=== PATIENT | female | born 1930 | race Caucasian/White ===

== ENCOUNTER 2017-01-03 09:18 | Emergency (ER) | payer OTHER ==
[~2017-01-03] VITALS: Ht 170.2 cm; Wt 90.0 kg
[~2017-01-03 09:18] MED LIST: ALBU2.5V3 NEB; ALBU8.5H3 INH; AMLO2.5T78 PO; AZIT250T94 PO; GLIP2.5T3 PO; LAS20 PO; LEVO100T87 PO; LISI10TA2 PO; LORA10TA3 PO; OMEP40CA6 PO; ONDA4TAB35 PO; PRED20TA PO; [UNRECOGNIZED DRUG - CODE] MC
[2017-01-03 09:43] VITALS: Ht 170.2 cm; Wt 90.0 kg
[2017-01-03] MEDS ORDERED: morphine 4 MG/ML VIAL IV STA (09:50)
[2017-01-03] MEDS ORDERED: ONDANSETRON 4 MG INJ IV STA (09:50)
[2017-01-03] MEDS ORDERED: SOD CHLORIDE 0.9% 500 ML IV STA (09:50)
[2017-01-03 10:30] LABS: ADD SCAN DIFF NO
[2017-01-03] MEDS ORDERED: LINA5TAB PO (10:31)
[2017-01-03] MEDS ORDERED: LEVO25TA53 PO (10:31)
[2017-01-03] MEDS ORDERED: AMLO-147 PO (10:31)
[2017-01-03] MEDS ORDERED: NAPR-683 PO (10:32)
[2017-01-03] MEDS ORDERED: MELO-109 PO (10:32)
[2017-01-03 10:34] LABS: BASOPHILS % 1.1 % (0.0-2.0); EOSINOPHILS # 0.2 10^3/ul (0.0-0.5); EOSINOPHILS % 4.7 % (0.0-7.0); HEMATOCRIT 35.8 % (37.0-47.0); HEMOGLOBIN 12.4 g/dl (12.0-16.0); LYMPHOCYTES % 28.4 % (15.0-51.0); MEAN CORPUSCULAR HEMOGLOBIN 30.1 pg (29.0-33.0); MEAN CORPUSCULAR HGB CONC 34.6 g/dl (32.0-37.0); MEAN CORPUSCULAR VOLUME 86.9 fl (82.0-101.0); MEAN PLATELET VOLUME 9.8 fl (7.4-10.4); MONOCYTE # 0.2 10^3/ul (0.3-0.9); MONOCYTES % 6.3 % (0.0-11.0); NEUTROPHIL # 2.2 10^3/ul (1.6-7.5); NEUTROPHILS % 59.2 % (39.0-77.0); PLATELET COUNT 126 10^3/UL (140-415); RED BLOOD COUNT 4.12 10^6/ul (4.20-5.40); RED CELL DISTRIBUTION WIDTH 12.8 % (11.5-14.5); WHITE BLOOD COUNT 3.6 10^3/ul (4.8-10.8)
[2017-01-03] MEDS ORDERED: LISI20TA11 PO (10:34)
[2017-01-03 10:35] LABS: ADD UMIC YES; URINE BILIRUBIN (Dip) NEGATIVE (NEGATIVE); URINE BLOOD (Dip) NEGATIVE (NEGATIVE); URINE COLOR LT. YELLOW (YELLOW); URINE GLUCOSE (Dip) NEGATIVE (NEGATIVE); URINE KETONES (Dip) NEGATIVE (NEGATIVE); URINE LEUKOCYTE ESTERASE (Dip) 2+ (NEGATIVE); URINE NITRITE (Dip) NEGATIVE (NEGATIVE); URINE TOTAL PROTEIN (Dip) NEGATIVE (NEGATIVE); URINE UROBILINOGEN (Dip) 0.2 E.U./dL (0.1-1.0)
[2017-01-03] MEDS ORDERED: OMEP20CA16 PO (10:35)
[2017-01-03 10:53] LABS: ALBUMIN 4.1 g/dl (3.3-4.9); ALBUMIN/GLOBULIN RATIO 1.05; BILIRUBIN,INDIRECT 0.3 mg/dl (0-1.1); BILIRUBIN,TOTAL 0.3 mg/dl (0.2-1.3); CALCIUM 9.5 mg/dl (8.4-10.2); CREATININE 1.17 mg/dl (0.44-1.00); POTASSIUM 4.8 mmol/L (3.5-5.1)
[2017-01-03 10:57] LABS: URINE RBCS 0-2 /HPF (0)
[2017-01-03 10:58] LABS: BACTERIA,URINE RARE
--- NOTE | 2017-01-03 12:12 | RADRPT ---
PROCEDURE: CT Abdomen and Pelvis without contrast. CLINICAL INDICATION: Abdominal pain. TECHNIQUE: Multiple contiguous axial CT images of the abdomen and pelvis were obtained without the administration of intravenous contrast. Coronal and sagittal reconstructions were also performed. CTDIvol (mGy): 15.78; Total Exam DLP (mGy-cm): 936.60. One or more of the following dose reduction techniques were utilized: - Automated exposure control. - Adjustment of the mA and/or kV according to patient size. - Use of iterative reconstruction technique. COMPARISON: 07/11/2014. FINDINGS: Limited imaging of the lower thorax demonstrates a 6 mm noncalcified nodule of the left lower lobe w hich is unchanged and presumed benign given its stability. The liver and spleen are homogeneous in density. A micronodular contour of the liver is observed an d more pronounced since prior examination. The spleen is mildly enlarged measuring 13.1 cm in a cran iocaudal dimension. The gallbladder is surgically absent. The pancreas and adrenal glands are unrem arkable. Left renal atrophy is present and unchanged. There are no nephroureteral stones. There is no hydro nephrosis or abnormal perinephric inflammation. The abdominal aorta is normal in caliber. Atherosclerotic calcification is present. There is no per iaortic / retroperitoneal lymphadenopathy. A small hiatal hernia is present. The stomach is collapsed. The small intestines are unremarkable. Diffuse diverticulosis is observed. The appendix is not visualized. There are no focal inflammat ory changes of the mesentery. There is no mesenteric lymphadenopathy. There is no ascites. Pelvic floor relaxation is observed. The bladder is partially distended and normal in contour. The uterus is absent. The adnexa are unremarkable. Trace free pelvic fluid is present. There is no pel mirtha sidewall or inguinal lymphadenopathy. Degenerative changes are most prominent within the lower thoracic and upper lumbar spine. Intervert ebral disk narrowing with endplate sclerosis and osteophyte formation are present. Trace retrolisthe sis of L2 or L3 is unchanged. Surgical changes are seen within the ventral abdominal wall. There i s a small fat containing periumbilical hernia. IMPRESSION: No evidence of abdominopelvic mass, lymphadenopathy or acute inflammatory pathology. No evidence of nephroureterolithiasis, urinary tract obstruction or urinary tract inflammation. Micronodular contour of the liver, more prominent since prior examination. Imaging findings suggest the presence of cirrhotic change. Mild splenic enlargement, unchanged. Diverticulosis. No evidence of diverticulitis. 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 RPTAT: HLST .Leatha Mancilla MD, Date Time Electronically viewed and signed by .Leatha Mancilla MD, on 01/03/2017 12:11 .T/
[2017-01-03] MEDS ORDERED: CIPR500T4 PO (12:48)
[2017-01-03] MEDS ORDERED: TRAM50TA2 PO (12:48)
[2017-01-03] MEDS ORDERED: CEFTRIAXONE 1 GM/50 ML (PMX) 50 ML IVPB ONE (13:00)
--- NOTE | 2017-01-03 13:08 | ERD ---
ER Documentation Chief Complaint Date/Time DATE: 01/03/17 TIME: 13:03 Chief Complaint back pain rad abdomen HPI This is a very pleasant 86-year-old female comes in with flank pain radiating to her bladder region. Pain is mild to moderate intensity denies any blood in her urine denies any hematuria denies any dysuria denies any urgency. Pain is mild to moderate in intensity with no exacerbating or alleviating factors. ROS All systems reviewed and are negative except as per history of present illness. Medications Home Meds Active Scripts Tramadol HCl (Tramadol HCl) 50 Mg Tablet, 50 MG PO Q4 Y for PAIN, #20 TAB Prov:ERIKA PORTILLO. 01/03/17 Ciprofloxacin Hcl* (Ciprofloxacin Hcl*) 500 Mg Tablet, 500 MG PO BID for 7 Days , TAB Prov:ERIKA PORTILLO 01/03/17 Albuterol Sulfate* (Proair HFA*) 8.5 Gm Hfa.aer.ad, 2 PUFF INH Q4, #1 INHALER Prov:RITA HUNTER DO 05/28/16 Albuterol Sulfate* (Albuterol Sulfate* Neb) 0.083%-3 Ml Neb, 2.5 MG NEB Q4 Y for SHORTNESS OF BREATH, #30 EA Prov:RITA HUNTER DO 05/28/16 Reported Medications Omeprazole* (Omeprazole*) 20 Mg Capsule.dr, 20 MG PO DAILY, #30 CAP 01/03/17 Lisinopril* (Lisinopril*) 20 Mg Tablet, 20 MG PO DAILY, #30 TAB 01/03/17 Naproxen* (Naproxen*) 250 Mg Tablet, 250 MG PO BID Y for PAIN, TAB 01/03/17 Meloxicam* (Meloxicam*) 7.5 Mg Tablet, 15 MG PO DAILY, #30 TAB 01/03/17 Linagliptin (TRADJENTA) 5 Mg Tablet, 5 MG PO DAILY, TAB 01/03/17 Levothyroxine Sodium* (Levothyroxine Sodium*) 25 Mcg Tablet, 25 MCG PO BEFORE BREAKFAST, #30 TAB 01/03/17 Amlodipine Besylate* (Amlodipine Besylate*) 10 Mg Tablet, 10 MG PO BID, #30 TAB 01/03/17 Loratadine* (Loratadine*) 10 Mg Tablet, 10 MG PO DAILY 07/13/13 Furosemide (Lasix) 20 Mg Tab, 20 MG PO DAILY 07/13/13 Discontinued Reported Medications Lisinopril* (Lisinopril*) 10 Mg Tablet, 10 MG PO BID, TAB 07/11/14 Amlodipine Besylate* (Amlodipine Besylate*) 2.5 Mg Tablet, 2.5 MG PO BID, TAB 07/11/14 Levothyroxine Sodium* (Levothyroxine Sodium*) 100 Mcg Tablet, 100 MCG PO AC BREAKFAST, TAB 07/11/14 Omeprazole* (Omeprazole*) 40 Mg Capsule.dr, 20 MG PO DAILY 07/13/13 Glipizide* (Glipizide ER*) 2.5 Mg Tab.er.24, 5 MG PO DAILY 07/13/13 Discontinued Scripts Nebulizer/Compressor (Comp-Air Nebulizer System) 1 Each Each, 1 EACH , #1 Prov:RITA HUNTER DO 05/28/16 Azithromycin* (Zithromax*) 250 Mg Tablet, 250 MG PO .OrlinPACK DIRECTED, #6 TAB TAKE 500 MG (2 TABS) THE FIRST DAY THEN 250 MG (1 TAB) DAYS 2-5 Prov:RITA HUNTER DO 05/28/16 Prednisone* (Prednisone*) 20 Mg Tab, 60 MG PO DAILY for 5 Days, TAB Prov:RITA HUNTER DO 05/28/16 Ondansetron Hcl* (Zofran* ODT) 4 mg -ODT Tab.disper, 4 MG PO Q6 Y for NAUSEA AND /OR VOMITING, #30 TAB Prov:BURTON AVILA MD 12/21/15 Allergies Allergies: Coded Allergies: egg (Verified Allergy, Intermediate, hives, 12/06/14) Uncoded Allergies: butter (Allergy, Intermediate, rash, 07/14/13) PMhx/Soc History of Surgery: Yes (hysterectomy) Anesthesia Reaction: No Hx Neurological Disorder: No Hx Respiratory Disorders: Yes (COPD AND CHF , ASTHMA) Hx Cardiac Disorders: Yes (angina) Hx Psychiatric Problems: Yes (ANXIETY) Hx Miscellaneous Medical Probl: Yes (DM, HTN, COPD, anxiety) Hx Alcohol Use: No Hx Substance Use: No Hx Tobacco Use: No Smoking Status: Never smoker Physical Exam Vitals Vital Signs Date Time Temp Pulse Resp B/P Pulse Ox O2 Delivery O2 Flow Rate FiO2 01/03/17 11:35 70 18 140/66 98 Room Air 01/03/17 09:43 98.1 84 18 155/88 99 Physical Exam Const: [] Head: Atraumatic Eyes: Normal Conjunctiva ENT: Normal External Ears, Nose and Mouth. Neck: Full range of motion..~ No meningismus. Resp: Clear to auscultation bilaterally Cardio: Regular rate and rhythm, no murmurs Abd: Soft, non tender, non distended. Normal bowel sounds Skin: No petechiae or rashes Back: No midline or flank tenderness Ext: No cyanosis, or edema Neur: Awake and alert Psych: Normal Mood and Affect Result Diagram: 01/03/17 1015 01/03/17 1015 Results 24 hrs Laboratory Tests Test 01/03/17 10:06 01/03/17 10:15 Urine Color LT. YELLOW Urine Clarity CLEAR Urine pH 6.0 Urine Specific [place] <=1.005 Urine Ketones NEGATIVE Urine Nitrite NEGATIVE Urine Bilirubin NEGATIVE Urine Urobilinogen 0.2 E.U./dL Urine Leukocyte Esterase 2+ Urine Microscopic RBC 0-2/HPF Urine Microscopic WBC 0-2/HPF Urine Epithelial Cells OCCASIONAL Urine Bacteria RARE Urine Hemoglobin NEGATIVE Urine Glucose NEGATIVE% Urine Total Protein NEGATIVE White Blood Count 3.610^3/ul Red Blood Count 4.1210^6/ul Hemoglobin 12.4g/dl Hematocrit 35.8% Mean Corpuscular Volume 86.9fl Mean Corpuscular Hemoglobin 30.1pg Mean Corpuscular Hemoglobin Concent 34.6g/dl Red Cell Distribution Width 12.8% Platelet Count 37660^3/UL Mean Platelet Volume 9.8fl Neutrophils % 59.2% Lymphocytes % 28.4% Monocytes % 6.3% Eosinophils % 4.7% Basophils % 1.1% Nucleated Red Blood Cells % 0.0/100WBC Neutrophils # 2.210^3/ul Lymphocytes # 1.010^3/ul Monocytes # 0.210^3/ul Eosinophils # 0.210^3/ul Basophils # 0.010^3/ul Nucleated Red Blood Cells # 0.010^3/ul Sodium Level 133mmol/L Potassium Level 4.8mmol/L Chloride Level 101mmol/L Carbon Dioxide Level 26mmol/L Anion Gap 11 Blood Urea Nitrogen 21mg/dl Creatinine 1.17mg/dl Glucose Level 167mg/dl Calcium Level 9.5mg/dl Total Bilirubin 0.3mg/dl Direct Bilirubin 0.00mg/dl Indirect Bilirubin 0.3mg/dl Aspartate Amino Transf (AST/SGOT) 27IU/L Alanine Aminotransferase (ALT/SGPT) 23IU/L Alkaline Phosphatase 78IU/L Total Protein 8.0g/dl Albumin 4.1g/dl Globulin 3.90g/dl Albumin/Globulin Ratio 1.05 Lipase 181U/L Current Medications Medications (Trade) Dose Ordered Sig/Ct Route PRN Reason Start Time Stop Time Status Last Admin Dose Admin Sodium Chloride (NS) 500 ml @ 500 mls/hr Q1H STAT IV 01/03/17 09:50 01/03/17 10:49 DC 01/03/17 10:13 Morphine Sulfate (morphine) 4 mg ONCE STAT IV 01/03/17 09:50 01/03/17 09:51 DC 01/03/17 10:12 Ondansetron HCl 4 mg 4 mg ONCE STAT IV 01/03/17 09:50 01/03/17 09:51 DC 01/03/17 10:12 Ceftriaxone Sodium (Rocephin) 50 ml @ 100 mls/hr ONCE ONCE IVPB 01/03/17 13:00 01/03/17 13:29 Procedures/MDM Medical decision-makin-year-old female with a negative CT scan a nonsurgical abdomen. She does have evidence of some leukocyte esterase and urinary sample. At this point she will be started prophylactically on antibiotics. Clinically stable. Treated as an outpatient. Return in 8 hours for serial abdominal exams. Departure Diagnosis: Primary Impression: Multiple complaints Condition: Stable Patient Instructions: Cystitis ERIKA PORTILLO January 03, 2017 13:08
[2017-01-03 14:09] VITALS: BP 138/72; PULSE 76; RESP 18; TEMP 98
== END 2017-01-03 14:09 | disposition home or self-care (01) ==
LOC: E/R 09:18
DX: M54.9 Dorsalgia, unspecified (principal); J44.9 Chronic obstructive pulmonary disease, unspecified; I50.9 Heart failure, unspecified; J45.909 Unspecified asthma, uncomplicated; E11.9 Type 2 diabetes mellitus without complications; I10 Essential (primary) hypertension; R10.9 Unspecified abdominal pain; Z79.84 Long term (current) use of oral hypoglycemic drugs
CPT/HCPCS: 36415; 74176; 80053; 81001; 83690; 85025; 96374; 96375; 99285; J0696; J2270; J2405; J7040

== ENCOUNTER 2017-03-28 17:34 | Emergency (ER) | payer OTHER ==
[~2017-03-28] VITALS: Ht 157.5 cm; Wt 89.0 kg
[~2017-03-28 17:34] MED LIST changes: +AMLO-147 PO; -AMLO2.5T78 PO; -AZIT250T94 PO; +CIPR500T4 PO; -GLIP2.5T3 PO; -LEVO100T87 PO; +LEVO25TA53 PO; +LINA5TAB PO; -LISI10TA2 PO; +LISI20TA11 PO; +MELO-109 PO; +NAPR-683 PO; +OMEP20CA16 PO; -OMEP40CA6 PO; -ONDA4TAB35 PO; -PRED20TA PO; +TRAM50TA2 PO; -[UNRECOGNIZED DRUG - CODE] MC
[2017-03-28 17:39] VITALS: Ht 157.5 cm; Wt 89.0 kg
[2017-03-28] MEDS ORDERED: morphine 4 MG/ML VIAL IV STA (20:03)
[2017-03-28] MEDS ORDERED: ONDANSETRON 4 MG INJ IV STA (20:03)
[2017-03-28] MEDS ORDERED: SOD CHLORIDE 0.9% 500 ML IV STA (20:03)
[2017-03-28 20:19] LABS: BASOPHIL # 0.1 10^3/ul (0.0-0.1); BASOPHILS % 0.9 % (0.0-2.0); EOSINOPHILS # 0.1 10^3/ul (0.0-0.5); EOSINOPHILS % 1.9 % (0.0-7.0); HEMATOCRIT 38.4 % (37.0-47.0); HEMOGLOBIN 13.5 g/dl (12.0-16.0); LYMPHOCYTES # 1.9 10^3/ul (0.8-2.9); LYMPHOCYTES % 32.9 % (15.0-51.0); MEAN CORPUSCULAR HEMOGLOBIN 30.3 pg (29.0-33.0); MEAN CORPUSCULAR HGB CONC 35.2 g/dl (32.0-37.0); MEAN CORPUSCULAR VOLUME 86.1 fl (82.0-101.0); MEAN PLATELET VOLUME 9.9 fl (7.4-10.4); MONOCYTE # 0.5 10^3/ul (0.3-0.9); PLATELET COUNT 113 10^3/UL (140-415); RED BLOOD COUNT 4.46 10^6/ul (4.20-5.40); WHITE BLOOD COUNT 5.9 10^3/ul (4.8-10.8)
[2017-03-28] MEDS ORDERED: MECLIZINE 12.5 MG TAB PO ONE (20:30)
[2017-03-28] MEDS ORDERED: PANT40TA4 PO (20:36)
[2017-03-28 20:52] LABS: POTASSIUM 4.1 mmol/L (3.5-5.1)
[2017-03-28 20:53] LABS: CALCIUM 9.7 mg/dl (8.4-10.2); CREATININE 0.98 mg/dl (0.44-1.00)
--- NOTE | 2017-03-28 21:20 | RADRPT ---
PROCEDURE: CT Brain without contrast. CLINICAL INDICATION: Headache. TECHNIQUE: A CT of the brain was performed on multidetector high-resolution CT scanner utilizing a xial sections from the skull base through the vertex without contrast. The scan was reviewed in sof t tissue brain and high frequency resolution bone algorithm windows. Images were reviewed on a high -resolution PACS workstation. One or more the following does reduction techniques were utilized: Aut omated exposure control, adjustment of the mA/ or kV according to patient's size, or use of iterativ e reconstruction technique. The exam CTDI = 43.27 mGy and the DLP = 720.23 mGy-cm. COMPARISON: None available. FINDINGS: The ventricles and sulci are mildly prominent indicative of volume loss. There is no intracranial h emorrhage, mass effect or midline shift. No abnormal intra-axial or extra-axial fluid collections a re seen. The rodriguez/white matter differentiation is preserved. There are mild scattered foci of hypoattenuation in the white matter, which are nonspecific in etiol ogy but likely reflect chronic small vessel ischemic changes. There are mild intracranial vascular calcifications consistent with atherosclerosis. The visualized paranasal sinuses are essentially miguel ar. IMPRESSION: 1. No acute intracranial hemorrhage, transcortical infarction or mass effect. 2. Mild intracranial atherosclerosis and chronic small vessel ischemic changes. 3. Mild generalized cerebral volume loss. RPTAT: HFN .Fallon Coffey MD, MD Date Time Electronically viewed and signed by .Fallon Coffey MD, MD on 03/28/2017 21:20 .N/
[2017-03-28] MEDS ORDERED: DOCU-144 PO (22:00)
[2017-03-28] MEDS ORDERED: MECL12.574 PO (22:00)
[2017-03-28] MEDS ORDERED: TRAM50TA2 PO (22:00)
--- NOTE | 2017-03-28 22:05 | ERA ---
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 The patient and family are very difficult historians. Initially she started describe leg pain but then vertigo. When I teased this out she states that she has had vertigo that has been lasting for approximately 5-7 days. She states that it is the room spinning and worse when her head is moving from side to side. She denies any slurred speech, difficulty ambulating or ataxia. Additionally, she is having bilateral thigh and leg pain. She describes it as 6 out of 10 and throbbing. She has a history of peripheral neuropathy but usually it is to lower legs. She states that she has taken some pain medicine but no improvement. No bowel or bladder incontinence no lumbar back pain no abdominal pain. ROS All systems reviewed and are negative except as per history of present illness. Medications Home Meds Active Scripts Docusate Sodium* (Colace*) 100 Mg Capsule, 100 MG PO TID Y for CONSTIPATION, # 30 CAP Prov:BURTON AVILA MD 03/28/17 Tramadol HCl (Tramadol HCl) 50 Mg Tablet, 50 MG PO Q8 Y for PAIN, #20 TAB Prov:BURTON AVILA MD 03/28/17 Meclizine Hcl* (Antivert*) 12.5 Mg Tab, 12.5 MG PO Q8H Y for DIZZINESS, #20 TAB Prov:BURTON AVILA MD 03/28/17 Tramadol HCl (Tramadol HCl) 50 Mg Tablet, 50 MG PO Q4 Y for PAIN, #20 TAB Prov:ERIKA PORTILLO 01/03/17 Reported Medications Pantoprazole* (Pantoprazole*) 40 Mg Tablet., 40 MG PO AC BREAKFAST, TAB 03/28/17 Naproxen* (Naproxen*) 250 Mg Tablet, 250 MG PO BID Y for PAIN, TAB 01/03/17 Discontinued Reported Medications Omeprazole* (Omeprazole*) 20 Mg Capsule., 20 MG PO DAILY, #30 CAP 01/03/17 Lisinopril* (Lisinopril*) 20 Mg Tablet, 20 MG PO DAILY, #30 TAB 01/03/17 Meloxicam* (Meloxicam*) 7.5 Mg Tablet, 15 MG PO DAILY, #30 TAB 01/03/17 Linagliptin (TRADJENTA) 5 Mg Tablet, 5 MG PO DAILY, TAB 01/03/17 Levothyroxine Sodium* (Levothyroxine Sodium*) 25 Mcg Tablet, 25 MCG PO BEFORE BREAKFAST, #30 TAB 01/03/17 Amlodipine Besylate* (Amlodipine Besylate*) 10 Mg Tablet, 10 MG PO BID, #30 TAB 01/03/17 Loratadine* (Loratadine*) 10 Mg Tablet, 10 MG PO DAILY 07/13/13 Furosemide (Lasix) 20 Mg Tab, 20 MG PO DAILY 07/13/13 Discontinued Scripts Ciprofloxacin Hcl* (Ciprofloxacin Hcl*) 500 Mg Tablet, 500 MG PO BID for 7 Days , TAB Prov:ERIKA PORTILLO 01/03/17 Albuterol Sulfate* (Proair HFA*) 8.5 Gm Hfa.aer.ad, 2 PUFF INH Q4, #1 INHALER Prov:RITA HUNTER DO 05/28/16 Albuterol Sulfate* (Albuterol Sulfate* Neb) 0.083%-3 Ml Neb, 2.5 MG NEB Q4 Y for SHORTNESS OF BREATH, #30 EA Prov:RITA HUNTER DO 05/28/16 Allergies Allergies: Coded Allergies: No Known Allergy (Unverified , 03/28/17) PMhx/Soc History of Surgery: Yes (hysterectomy) Anesthesia Reaction: No Hx Neurological Disorder: No Hx Respiratory Disorders: Yes (COPD AND CHF , ASTHMA) Hx Cardiac Disorders: Yes (angina) Hx Psychiatric Problems: Yes (ANXIETY) Hx Miscellaneous Medical Probl: Yes (DM, HTN, COPD, anxiety) Hx Alcohol Use: No Hx Substance Use: No Hx Tobacco Use: No Smoking Status: Never smoker FmHx Family History: No diabetes Physical Exam Vitals Vital Signs Date Time Temp Pulse Resp B/P Pulse Ox O2 Delivery O2 Flow Rate FiO2 03/28/17 20:01 98.6 84 18 148/80 97 Room Air 03/28/17 17:39 98.1 90 18 158/69 99 Physical Exam General: Well developed, well nourished, no acute distress Head: Normocephalic, atraumatic. Eyes: Pupils equally reactive, EOM intact ENT: Moist mucous membranes Neck: Supple, no lymphadenopathy Respiratory: Lungs clear bilaterally, no distress Cardiovascular: RRR, no murmurs, rubs, or gallops Abdominal: Soft, non-tender, non-distended, no peritoneal signs : Deferred MSK: No edema, no unilateral swelling, 5/5 strength, soft compartments without soft tissue tenderness to bilateral thighs, normal internal and external rotation of bilateral hips, pelvis is stable. 2+ dorsalis pedis and posterior tibial pulses bilaterally Neurologic: Alert and oriented, moving all extremities, normal speech, no focal weakness, no cerebellar signs, slight reproducible vertigo with head movement Skin: No rash Psych: Normal mood Result Diagram: 03/28/17200603/28/172006 Results 24 hrs Laboratory Tests Test 03/28/17 20:07 White Blood Count 5.910^3/ul Red Blood Count 4.4610^6/ul Hemoglobin 13.5g/dl Hematocrit 38.4% Mean Corpuscular Volume 86.1fl Mean Corpuscular Hemoglobin 30.3pg Mean Corpuscular Hemoglobin Concent 35.2g/dl Red Cell Distribution Width 13.0% Platelet Count 02813^3/UL Mean Platelet Volume 9.9fl Neutrophils % 55.0% Lymphocytes % 32.9% Monocytes % 9.0% Eosinophils % 1.9% Basophils % 0.9% Nucleated Red Blood Cells % 0.0/100WBC Neutrophils # (Manual) 310^3/ul Lymphocytes # 1.910^3/ul Monocytes # 0.510^3/ul Eosinophils # 0.110^3/ul Basophils # 0.110^3/ul Nucleated Red Blood Cells # 0.010^3/ul Sodium Level 135mmol/L Potassium Level 4.1mmol/L Chloride Level 90mmol/L Carbon Dioxide Level 30mmol/L Anion Gap 19 Blood Urea Nitrogen 15mg/dl Creatinine 0.98mg/dl Glucose Level 142mg/dl Calcium Level 9.7mg/dl Creatine Kinase 35IU/L Current Medications Medications (Trade) Dose Ordered Sig/Ct Route PRN Reason Start Time Stop Time Status Last Admin Dose Admin Sodium Chloride (NS) 500 ml @ 500 mls/hr Q1H STAT IV 03/28/17 20:03 03/28/17 21:02 DC 03/28/17 20:15 Ondansetron HCl (Zofran Inj) 4 mg ONCE STAT IV 03/28/17 20:03 03/28/17 20:04 DC 03/28/17 20:15 Morphine Sulfate (morphine) 4 mg ONCE STAT IV 03/28/17 20:03 03/28/17 20:04 DC 03/28/17 20:15 Meclizine HCl (Antivert) 12.5 mg ONCE ONCE PO 03/28/17 20:30 03/28/17 20:31 DC 03/28/17 20:15 Procedures/MDM EKG, MONITORS, & DIAGNOSTIC IMAGING: CT brain IMPRESSION: 1. No acute intracranial hemorrhage, transcortical infarction or mass effect. 2. Mild intracranial atherosclerosis and chronic small vessel ischemic changes. 3. Mild generalized cerebral volume loss. LAB INTERPRETATION: No significant leukocytosis, normal CPK MEDICAL DECISION MAKING: The patient is a difficult historian and it appears she has 2 issues today. The first of which appears to be consistent with benign positional vertigo. She is 86 but no signs or symptoms concerning for intracranial process such as central vertigo. The patient has reproducible symptoms, no other neurologic symptoms that would be concerning for stroke. CT brain has been performed and is negative. The patient will be given a small dose of meclizine understanding that she is 86 but the benefits outweigh the risks at this time. She tolerated this well. I do not believe she requires inpatient hospitalization or MRI as her symptoms are improved Her second issue is consistent with bilateral thigh pain. She has soft compartments without evidence of deep space infection or DVT. She has no unilateral swelling and good pulses distally. No evidence of acute arterial occlusion. This is most consistent with myalgia or peripheral diabetic neuropathy. The patient will benefit from a total CK as she does take a statin. ER COURSE: The patient was given pain medication and meclizine with a dramatic improvement of her symptoms. She is now resting comfortably and asymptomatic. Outpatient management with primary care physician would be appropriate. A small dose of meclizine will be provided for her vertigo and tramadol will be provided for her leg pain as she is already taking gabapentin primary care physician follow- up is strongly recommended I kept the patient and/or family informed of laboratory and diagnostic imaging results throughout the emergency room course. DISPOSITION PLAN: We discussed follow up with the patient's primary care doctor within 24 to 48 hours as needed. We also discussed return to the emergency room for worsening symptoms or worsening condition. Outpatient referral: [None required] Discharge Medications: Meclizine, Colace, tramadol Departure Diagnosis: Primary Impression: Diabetic peripheral neuropathy Additional Impression: BPV (benign positional vertigo) Qualified Code: H81.10 - BPV (benign positional vertigo), unspecified laterality Condition: Stable Patient Instructions: What Is Peripheral Neuropathy?, Benign Positional Vertigo Additional Instructions: Llame al doctor nombrado shankar (Referral Sources) MAANA y tavo vincent ELYSIA PARA DENTRO DE VINCENT SEMANA. Dgale a la secretaria que nosotros le instruimos hacer esta elysia.Avise o llame si grey condicin se empeora antes de la elysia. BURTON AVILA MD Mar 28, 2017 22:05
[2017-03-28 22:40] VITALS: BP 156/77; PULSE 80; RESP 18; TEMP 98.5
== END 2017-03-28 22:46 | disposition home or self-care (01) ==
LOC: E/R 17:34
DX: E11.21 Type 2 diabetes mellitus with diabetic nephropathy (principal); H81.10 Benign paroxysmal vertigo, unspecified ear; J44.9 Chronic obstructive pulmonary disease, unspecified; I50.9 Heart failure, unspecified; I10 Essential (primary) hypertension; R51 Headache
CPT/HCPCS: 36415; 70450; 80048; 82550; 85025; 96374; 96375; 99285; J2270; J2405; J7040

== ENCOUNTER 2017-09-25 12:38 | Emergency (ER) | END 2017-09-25 20:56 | disposition home or self-care (01) ==

== ENCOUNTER 2018-11-06 20:09 | Emergency (ER) | payer OTHER ==
[~2018-11-06] VITALS: Ht 154.9 cm; Wt 80.8 kg
[~2018-11-06 20:09] MED LIST changes: -ALBU2.5V3 NEB; -ALBU8.5H3 INH; +ALBU8.5H8 INH; +AZIT250T PO; -CIPR500T4 PO; +DOCU-144 PO; -LAS20 PO; -LEVO25TA53 PO; +LEVO25TA6 PO; -LINA5TAB PO; +LISI-471 PO; -LISI20TA11 PO; -LORA10TA3 PO; +MECL12.574 PO; -MELO-109 PO; -NAPR-683 PO; -OMEP20CA16 PO; +PANT40TA4 PO; +PRED20TA PO; +TRAM50TA PO; -TRAM50TA2 PO
[2018-11-06 20:19] VITALS: Ht 154.9 cm; Wt 80.8 kg
[2018-11-06] MEDS ORDERED: SOD CHLORIDE 0.9% 500 ML IV STA (22:25)
--- NOTE | 2018-11-07 01:07 | ERD ---
ER Documentation Chief Complaint Chief Complaint AP, DIARRHEA X'S 6 DAYS HPI This is a very pleasant 88-year-old female has had lower abdominal pain and diarrhea for the past 5 days. She had lower abdominal pain started 5 days ago a nd has been mild in nature with cramping associated with it with 3-4 episodes of diarrhea per day. There is been no blood in her stool. No nausea or vomiting. No fevers or chills. Pain is again mild in nature with no radiation of this days in the bilateral lower quadrants. Seems to precipitate an episode of diarrhea per the patient. She denies any sick contacts. Denies any recent travel. ROS All systems reviewed and are negative except as per history of present illness. Medications Home Meds Active Scripts Albuterol Sulfate* (Proair HFA*) 8.5 Gm Hfa.aer.ad, 2 PUFF INH Q4, #1 INHALER Prov:RITA HUNTER DO 09/25/17 Prednisone* (Prednisone*) 20 Mg Tab, 60 MG PO DAILY for 5 Days, TAB Prov:RITA HUNTER DO 09/25/17 Azithromycin* (Zithromax*) 250 Mg Tablet, 250 MG PO .ZPACK DIRECTED, #6 TAB TAKE 500 MG (2 TABS) THE FIRST DAY THEN 250 MG (1 TAB) DAYS 2-5 Prov:RITA HUNTER DO 09/25/17 Reported Medications Docusate Sodium* (Colace*) 100 Mg Capsule, 100 MG PO Q24H PRN for CONSTIPATION, #30 CAP 09/25/17 Meclizine Hcl* (Antivert*) 12.5 Mg Tab, 12.5 MG PO Q8H, #30 TAB 09/25/17 Tramadol Hcl* (Ultram*) 50 Mg Tablet, 50 MG PO NEEDED PRN for PAIN, TAB 09/25/17 Amlodipine Besylate* (Amlodipine Besylate*) 10 Mg Tablet, 10 MG PO DAILY, #30 TAB 09/25/17 Levothyroxine Sodium* (Levothyroxine Sodium*) 25 Mcg Tablet, 25 MCG PO BEFORE BREAKFAST, #30 TAB 09/25/17 Lisinopril* (Lisinopril*) 20 Mg Tablet, 20 MG PO DAILY, #30 TAB 09/25/17 Pantoprazole* (Pantoprazole*) 40 Mg Tablet.dr, 40 MG PO AC BREAKFAST, TAB 09/25/17 Allergies Allergies: Coded Allergies: codeine (Unverified Allergy, Unknown, 09/25/17) morphine (Unverified Allergy, Unknown, 09/25/17) PMhx/Soc History of Surgery: Yes (hysterectomy) Anesthesia Reaction: No Hx Neurological Disorder: No Hx Respiratory Disorders: Yes (COPD, CHF ) Hx Cardiac Disorders: Yes (angina, HTN, DM) Hx Psychiatric Problems: Yes (ANXIETY) Hx Miscellaneous Medical Probl: Yes Hx Alcohol Use: No Hx Substance Use: No Hx Tobacco Use: No Smoking Status: Never smoker Physical Exam Vitals Vital Signs Date Temp Pulse Resp B/P (MAP) Pulse Ox O2 O2 Flow FiO2 Time Delivery Rate 11/07/18 89 20 154/55 99 Room Air 00:30 (88) 11/06/18 68 19 153/79 99 Room Air 22:44 (103) 11/06/18 97.0 89 18 153/67 96 20:19 (95) Physical Exam Const: No acute distress Head: Atraumatic Eyes: Normal Conjunctiva ENT: Normal External Ears, Nose and Mouth. Neck: Full range of motion. No meningismus. Resp: Clear to auscultation bilaterally Cardio: Regular rate and rhythm, no murmurs Abd: Soft, non tender, non distended. Normal bowel sounds Skin: No petechiae or rashes Back: No midline or flank tenderness Ext: No cyanosis, or edema Neur: Awake and alert Psych: Normal Mood and Affect Result Diagram: 11/06/188 11/06/188 Results 24 hrs Laboratory Tests Test 11/06/18 22:18 White Blood Count 4.1 10^3/ul Red Blood Count 4.08 10^6/ul Hemoglobin 12.1 g/dl Hematocrit 35.6 % Mean Corpuscular Volume 87.3 fl Mean Corpuscular Hemoglobin 29.7 pg Mean Corpuscular Hemoglobin Concent 34.0 g/dl Red Cell Distribution Width 12.9 % Platelet Count 126 10^3/UL Mean Platelet Volume 9.9 fl Immature Granulocytes % 0.000 % Neutrophils % 44.8 % Lymphocytes % 42.0 % Monocytes % 8.3 % Eosinophils % 3.9 % Basophils % 1.0 % Nucleated Red Blood Cells % 0.0 /100WBC Immature Granulocytes # 0.000 10^3/ul Neutrophils # 1.8 10^3/ul Lymphocytes # 1.7 10^3/ul Monocytes # 0.3 10^3/ul Eosinophils # 0.2 10^3/ul Basophils # 0.0 10^3/ul Nucleated Red Blood Cells # 0.0 10^3/ul Urine Color YELLOW Urine Clarity CLEAR Urine pH 6.0 Urine Specific [place] 1.009 Urine Ketones NEGATIVE mg/dL Urine Nitrite NEGATIVE mg/dL Urine Bilirubin NEGATIVE mg/dL Urine Urobilinogen NEGATIVE mg/dL Urine Leukocyte Esterase 2+ Raine/ul Urine Microscopic RBC 0 /HPF Urine Microscopic WBC 7 /HPF Urine Hemoglobin NEGATIVE mg/dL Urine Glucose NEGATIVE mg/dL Urine Total Protein NEGATIVE mg/dl Sodium Level 131 mmol/L Potassium Level 4.3 mmol/L Chloride Level 94 mmol/L Carbon Dioxide Level 28 mmol/L Anion Gap 9 Blood Urea Nitrogen 20 mg/dl Creatinine 0.97 mg/dl Est Glomerular Filtrat Rate mL/min mL/min Glucose Level 94 mg/dl Calcium Level 9.5 mg/dl Total Bilirubin 0.2 mg/dl Direct Bilirubin 0.00 mg/dl Indirect Bilirubin 0.2 mg/dl Aspartate Amino Transf (AST/SGOT) 26 IU/L Alanine Aminotransferase (ALT/SGPT) 11 IU/L Alkaline Phosphatase 75 IU/L Troponin I < 0.012 ng/ml Total Protein 7.4 g/dl Albumin 4.0 g/dl Globulin 3.40 g/dl Albumin/Globulin Ratio 1.17 Lipase 162 U/L Current Medications Medications Dose Sig/Ct Start Time Status Last (Trade) Ordered Route PRN Stop Time Admin Dose Reason Admin Sodium 500 ml @ Q1H STAT 11/06/18 DC 11/06/18 Chloride 500 mls/hr IV 22:25 11/06/18 22:30 23:24 Procedures/MDM Emergency department course: Patient seen in vomit triage nurse. Placed in bed from evaluation. Given pain medication and nausea medication. Given fluid bolus. Serial exams were stable. Patient remained pain-free throughout her stay in the emergency department. Diagnostic data: EKG: Rate/Rhythm: Normal rate, normal rhythm QRS, ST, T-waves: [No changes consistent w/ acute ischemia] Impression: [No evidence of ischemia or arrhythmia] Chest X-ray 1V Interpreted by me: Soft Tissue: No acute abnormalities Bones: No acute abnormalities Mediastinum/Cardiac Silhouette/Lungs: [No acute abnormalities] Medical decision making: Patient's gastrointestinal symptoms have stabilized while in the department. No evidence of severe dehydration, sepsis, or surgical abdomen. Extensive discussion with family and patient that occult disease cannot be ruled out. 8 hour recheck for repeat abdominal exam is planned. Patient symptomology co uld represent mild diverticulitis. She will be discharged home with Cipro and Flagyl. She is to return again in 8 hours and otherwise follow-up with PCP Departure Diagnosis: Primary Impression: Abdominal pain Abdominal location: unspecified location Qualified Codes: R10.9 - Unspecified abdominal pain Condition: Stable ERIKA PORTILLO Nov 07, 2018 01:07
[2018-11-07] MEDS ORDERED: LOPE2CAP PO (01:08)
[2018-11-07] MEDS ORDERED: METR500T PO (01:08)
[2018-11-07] MEDS ORDERED: CIPR500T4 PO (01:08)
[2018-11-07 01:19] VITALS: BP 169/76; PULSE 79; RESP 18
== END 2018-11-07 01:21 | disposition home or self-care (01) ==
LOC: E/R 20:09
DX: R10.9 Unspecified abdominal pain (principal); I11.0 Hypertensive heart disease with heart failure; I50.9 Heart failure, unspecified; E11.9 Type 2 diabetes mellitus without complications; J44.9 Chronic obstructive pulmonary disease, unspecified
CPT/HCPCS: 71045; 74176; 80053; 81001; 83690; 84484; 85025; 93005; J7040; 36415